=== PATIENT | male | born 1960 | race Two or more races ===

== ENCOUNTER → 2017-09-17 | Outpatient (CLI) | payer OTHER | END | disposition home or self-care (01) | LOC: SPEC 10:55 → EEVIPCON 10:55 | PROVIDERS: ATTEND Nurse Practitioner Family | DX: Z00.00 Encounter for general adult medical examination without abnormal findings (principal); Z86.73 Personal history of transient ischemic attack (TIA), and cerebral infarction without residual deficits | CPT/HCPCS: 36415; 85610 ==

== ENCOUNTER → 2017-10-15 | Outpatient (CLI) | payer OTHER | END | disposition home or self-care (01) | LOC: SPEC 08:57 → EEVIPCON 08:57 | PROVIDERS: ATTEND Nurse Practitioner Family | DX: I63.8 Other cerebral infarction (principal) | CPT/HCPCS: 36415; 85610 ==